=== PATIENT | female | born 1960 ===

== ENCOUNTER 2021-05-20 20:45 | Outpatient (REF) | payer MEDICAID, SELFPAY ==
[2021-05-20 20:51] LABS: HCT 37.6 % (36.0-46.0); MCH 36.5 pg (27.0-33.0); MCHC 34.6 % (32.0-36.0); MCV 105.6 fL (80-95); MPV 10.7 fL (8.0-11.0); Platelet Count 298 10^3/uL (130-400); RBC 3.56 10^6/uL (3.93-5.22); RDW 13.5 % (11.7-14.6); RDW-SD 52.4 fL; WBC 12.13 10^3/uL (4.4-10.8)
[2021-05-20 21:20] LABS: Iron 56 ug/dL (50-170); Total Iron Binding Capacity 258 ug/dL (250-450); Transferrin Sat 22 % (15-50)
[2021-05-20 21:48] LABS: BUN 5 mg/dL (7-18); Calcium 9.4 mg/dL (8.5-10.1); Chloride 99 mmol/L (98-107); Estimated GFR 56.56 (mL/min/1.73m2); Ferritin 277 ng/mL (8-252); Folate 2.6 ng/mL (8.6-20.0); Glucose 114 mg/dL (74-106); Potassium 3.2 mmol/L (3.5-5.1); Sodium 136 mmol/L (136-145); Vitamin B12 281 pg/mL (193-986)
== END 2021-05-20 20:46 | disposition home or self-care (01) ==
LOC: NCHCN 20:45
PROVIDERS: PCP Family Medicine; Visit Provider Nurse Practitioner Family
DX: D64.9 Anemia, unspecified (principal); R94.4 Abnormal results of kidney function studies
CPT/HCPCS: 80048; 85027; 82607; 82728; 82746; 83540; 83550

== ENCOUNTER 2022-11-08 12:32 | Outpatient (REF) | payer MEDICAID, SELFPAY ==
[2022-11-08 15:22] LABS: Abs Immature Grans 0.03 10^3/uL (0.0-0.06); Absolute Basophil Count 0.09 10^3/uL (0.0-0.2); Absolute Eosinophil Count 0.16 10^3/uL (0.0-0.7); Absolute Monocyte Count 0.55 10^3/uL (0.1-0.8); Basophils % 0.8; Eosinophils % 1.4; HCT 40.8 % (36.0-46.0); HGB 14.2 g/dL (11.2-15.7); Immature Grans % 0.3; Lymphocytes % 41.5; MCH 35.5 pg (27.0-33.0); MCHC 34.8 % (32.0-36.0); MCV 102 fL (80-95); MPV 10.6 fL (8.0-11.0); Monocytes % 4.8; Neutrophils % 51.2; Platelet Count 242 10^3/uL (130-400); RDW 13.2 % (11.7-14.6); RDW-SD 50.4 fL; WBC 11.41 10^3/uL (4.4-10.8)
[2022-11-08 15:27] LABS: Absolute Lymphocyte Count 4.74 10^3/uL (1.2-3.4); Absolute Neutrophil Count 5.84 10^3/uL (1.2-6.7)
[2022-11-08 15:39] LABS: Hemoglobin A1C 5.7 % (<5.7)
[2022-11-08 15:50] LABS: ALT 11 U/L (14-59); AST 22 U/L (15-37); Albumin 4.3 g/dL (3.4-5.0); Alkaline Phosphatase 50 U/L (46-116); Anion Gap 9.7 mmol/L (3-11); BUN 6 mg/dL (7-18); Bilirubin, Total 0.5 mg/dL (0.2-1.0); CO2 27.3 mmol/L (21.0-32.0); Calcium 9.5 mg/dL (8.5-10.1); Calculated LDL 208 mg/dL (<100); Chloride 100 mmol/L (98-107); Cholesterol 277 mg/dL (<200); Estimated GFR 64.09 (mL/min/1.73m2); Folate 4.6 ng/mL (8.6-20.0); Glucose 90 mg/dL (74-106); HDL Cholesterol 47 mg/dL (40-60); Potassium 4.1 mmol/L (3.5-5.1); Sodium 137 mmol/L (136-145); Triglyceride 114 mg/dL (<150)
[2022-11-08 17:03] LABS: TSH 172.35 uIU/mL (0.36-3.74)
== END 2022-11-08 12:33 | disposition home or self-care (01) ==
LOC: NCHCN 12:32
PROVIDERS: PCP Family Medicine; Visit Provider Nurse Practitioner Family
DX: D64.9 Anemia, unspecified (principal); I10 Essential (primary) hypertension; F41.8 Other specified anxiety disorders; R53.83 Other fatigue; E55.9 Vitamin D deficiency, unspecified; R79.89 Other specified abnormal findings of blood chemistry
CPT/HCPCS: 80053; 80061; 82306; 82746; 83036; 84443; 85025